=== PATIENT | female | born 1960 | race African-American/Black ===

== ENCOUNTER 2017-09-14 12:59 | Emergency (ER) | payer MEDICARE, MEDICAID ==
[~2017-09-14] VITALS: Ht 165.1 cm; Wt 68.0 kg
[~2017-09-14 12:59] MED LIST: CYCL5TAB10 PO; DICL75TA5 PO; FLOV44; Gabapentin PO; NASOI; [UNRECOGNIZED DRUG - REMARK]
[2017-09-14 16:31] VITALS: BP 124/74
[2017-09-14] MEDS ORDERED: DIPHENHYDRAMINE HCL/ZINC ACET 28 GM CREAM TOP STA (17:41)
== END 2017-09-14 18:19 | disposition home or self-care (01) ==
LOC: ER 13:21
DX: L29.9 Pruritus, unspecified (principal); Z91.013 Allergy to seafood
CPT/HCPCS: 99282

== ENCOUNTER 2025-07-14 18:59 | Emergency (ER) | payer BC, MEDICAID ==
[~2025-07-14] VITALS: Ht 162.6 cm; Wt 73.0 kg
[2025-07-14 19:07] VITALS: O2SAT 97
[2025-07-14] MEDS: IBUPROFEN 600MG TABLET PO ONE (22:00)
[2025-07-14] MEDS: BACITRACIN ZINC OINT UDPKT TOP ONE (22:00)
[2025-07-14] MEDS ORDERED: CHLO473M2 MT (23:33)
[2025-07-14] MEDS ORDERED: BO1 TP (23:33)
[2025-07-14] MEDS ORDERED: IBUP-1455 MT (23:33)
[2025-07-15] MEDS ORDERED: BACITRACIN ZINC OINT UDPKT TOP NR (00:45)
[2025-07-15 00:49] VITALS: BP 151/74; PULSE 87; RESP 17; TEMP 36.9; O2SAT 100
== END 2025-07-15 00:48 | disposition home or self-care (01) ==
LOC: ER 18:59
DX: S01.511A Laceration without foreign body of lip, initial encounter (principal); I10 Essential (primary) hypertension; Z79.51 Long term (current) use of inhaled steroids; Z88.0 Allergy status to penicillin; Z91.013 Allergy to seafood; W50.0XXA Accidental hit or strike by another person, initial encounter; Y93.89 Activity, other specified; Y92.89 Other specified places as the place of occurrence of the external cause; Y99.8 Other external cause status
CPT/HCPCS: 12013; 70486; 99284

== ENCOUNTER 2025-07-20 09:32 | Emergency (ER) | payer MEDICARE, BC ==
[~2025-07-20] VITALS: Ht 165.1 cm; Wt 74.0 kg
[~2025-07-20 09:32] MED LIST changes: +BO1 TP; +CHLO473M2 MT; +IBUP-1455 MT
[2025-07-20 09:49] VITALS: O2SAT 99
[2025-07-20 10:35] VITALS: BP 143/77; PULSE 83; RESP 16; TEMP 36.7; O2SAT 99
== END 2025-07-20 10:38 | disposition home or self-care (01) ==
LOC: ER 09:32
DX: S01.81XD Laceration without foreign body of other part of head, subsequent encounter (principal); I10 Essential (primary) hypertension; Z91.013 Allergy to seafood; Z88.0 Allergy status to penicillin; Z79.899 Other long term (current) drug therapy; X58.XXXD Exposure to other specified factors, subsequent encounter
CPT/HCPCS: 99282